=== PATIENT | male | born 1965 | race Caucasian/White ===

== ENCOUNTER 2016-10-23 13:14 | Inpatient (IN) | payer OTHER ==
[~2016-10-23] VITALS: Ht 175.2 cm; Wt 66.3 kg
[2016-10-23 14:30] LABS: BASO % 0.4 % (0.0-1.0); EOS % 0.5 % (1.0-4.0); HEMOGLOBIN 16.2 g/dl (14.0-18.0); LYMPH # 1.1 10*3/uL (1.3-4.4); LYMPH % 13.9 % (27.0-41.0); MEAN CELL VOLUME 86.6 fl (80.0-94.0); MEAN CORPUSCULAR HGB 30.5 pg (27.0-31.0); MEAN CORPUSCULAR HGB CONC 35.2 g/dl (33.0-37.0); MEAN PLATELET VOLUME 9.7 fl (9.6-12.3); MONO # 0.6 10*3/uL (0.1-1.0); MONO % 7.9 % (3.0-9.0); NEUT # 6.3 10*3/uL (2.3-7.9); NEUT % 77.1 % (47.0-73.0); PLATELET COUNT AUTOMATED 323 10*3/uL (130-400); RED BLOOD COUNT 5.31 10*6/uL (4.50-5.90); RED CELL DISTRI WIDTH 12.4 % (0-14.5); WHITE BLOOD COUNT 8.1 10*3/uL (4.8-10.8)
[2016-10-23 14:38] LABS: INTERNATIONAL NORM RATIO 1.1 (2.0-3.5)
[2016-10-23 14:45] LABS: BILIRUBIN NEGATIVE (NEGATIVE); BLOOD NEGATIVE (NEGATIVE); CLARITY CLEAR (CLEAR); COLOR YELLOW (YELLOW); GLUCOSE NEGATIVE (NEGATIVE); KETONE NEGATIVE (NEGATIVE); LEUKO ESTERASE NEGATIVE (NEGATIVE); NITRITE NEGATIVE (NEGATIVE); PH 6.5 (5.0-9.0); SPECIFIC GRAVITY <= 1.005 (1.005-1.030); UROBILINOGEN 0.2 E.U./dl (0.2-1.0)
[2016-10-23 14:50] LABS: ALBUMIN 3.6 gm/dl (3.1-4.5); ALKALINE PHOSPHATASE 141 U/L (45-117); BUN 12 mg/dl (7-24); CHLORIDE 105 mmol/L (98-107); POTASSIUM 3.7 mmol/L (3.5-5.1); SGOT/AST 32 IU/L (3-35); SGPT/ALT 78 U/L (12-78); SODIUM 137 mmol/L (136-145); TOTAL PROTEIN 8.1 gm/dL (6.4-8.2)
[2016-10-23 14:53] LABS: URINE AMPHETAMINES < 1000 (1000ng/ml); URINE BARBITURATES < 200 (200ng/ml); URINE BENZODIAZEPINES < 200 (200ng/ml); URINE CANNABINOIDS (THC) < 50 (50ng/ml); URINE COCAINE < 300 (300ng/ml); URINE METHADONE < 300 (300ng/ml); URINE OPIATES > 300 (300ng/ml)
[2016-10-23 14:54] LABS: ETHYL ALCOHOL < 3.0 mg/dl (<3)
[2016-10-23 14:54] LABS: URINE PHENCYCLIDINE < 25 (25ng/ml)
[2016-10-23 14:56] LABS: EPITHELIAL CELLS 0-2; WBC 0-2 wbc/hpf (0-5)
[2016-10-23 16:00] VITALS: BP 140/98
[2016-10-23 20:00] VITALS: BP 142/91
[2016-10-24] VITALS: BP 112/72
[2016-10-24 04:00] VITALS: BP 125/86
[2016-10-24 08:00] VITALS: BP 112/73
[2016-10-24 11:16] VITALS: BP 105/57
[2016-10-24 16:00] VITALS: BP 107/61
[2016-10-24 20:00] VITALS: BP 127/81
[2016-10-25] VITALS: BP 98/61
[2016-10-25 08:00] VITALS: BP 90/68
[2016-10-25 12:00] VITALS: BP 108/71
[2016-10-25 16:00] VITALS: BP 114/73
[2016-10-25] MEDS ORDERED: ATARAX,VISTARIL50 MG PO (18:34)
[2016-10-25] MEDS ORDERED: ZOFRAN 4 MG ED2 TAB PO (18:34)
[2016-10-25] MEDS ORDERED: ROPINIROLE HYD0.5 MG PO (18:34)
[2016-10-25 20:00] VITALS: BP 106/66
[2016-10-26] VITALS: BP 90/58
[2016-10-26 08:00] VITALS: BP 106/67
== END 2016-10-26 11:08 | disposition home or self-care (01) | DRG 897 ==
LOC: 4E 13:14
PROVIDERS: ADMIT Internal Medicine
DX: F11.23 Opioid dependence with withdrawal (principal); J44.9 Chronic obstructive pulmonary disease, unspecified; F17.210 Nicotine dependence, cigarettes, uncomplicated; F19.90 Other psychoactive substance use, unspecified, uncomplicated; D72.825 Bandemia; R73.9 Hyperglycemia, unspecified; Z83.6 Family history of other diseases of the respiratory system